=== PATIENT | male | born 1940 | race Caucasian/White ===

== ENCOUNTER 2017-05-24 09:35 | Inpatient (IN) | payer OTHER, BC ==
[2017-05-05 11:26] VITALS: BMI 29.0
--- NOTE | 2017-05-05 12:04 | PAT Medication Instructions ---
Service Date May 05, 2017. Current Home Medication List Acetaminophen (Tylenol), 1,000 MG PO DAILY PRN for Pain Alfuzosin Hcl (Uroxatral), 10 MG PO QPM Aspirin (Aspirin Ec), 81 MG PO HS Citalopram (Citalopram Hydrobromide), 1 TAB PO QAM Ezetimibe (Zetia), 10 MG PO QPM Levothyroxine Sodium (Synthroid), 1 TAB PO QD@0300 Losartan Potassium (Cozaar), 1 TAB PO QPM Metoprolol Tartrate (Lopressor) (Lopressor), 25 MG PO BID Multivitamins/Minerals (Mvi With Minerals), 1 TAB PO QAM Omeprazole Magnesium (Prilosec Otc), 20 MG PO QAM Oxycodone/Acetaminophen 10MG/325MG (Percocet 10MG/325MG), 1 TAB PO Q4 PRN for Pain Quetiapine Fumarate (Seroquel), 1 TAB PO HS Simvastatin (Zocor), 40 MG PO QPM Sitagliptin Phosphate (Januvia), 100 MG PO QAM Zolpidem Tartrate (Ambien), 5 MG PO HS Medication Instructions For Your Scheduled Surgery - Hold the following medications the night before surgery: Ezetimibe (Zetia), 10 MG PO QPM Losartan Potassium (Cozaar), 1 TAB PO QPM - Hold the following medications the morning of surgery: Sitagliptin Phosphate (Januvia), 100 MG PO QAM Multivitamins/Minerals (Mvi With Minerals), 1 TAB PO QAM - Take the following medications the morning of surgery with a sip of water: Citalopram (Citalopram Hydrobromide), 1 TAB PO QAM Omeprazole Magnesium (Prilosec Otc), 20 MG PO QAM Acetaminophen (Tylenol), 1,000 MG PO DAILY PRN for Pain (if needed, can be taken up to four hours before surgery) Oxycodone/Acetaminophen 10MG/325MG (Percocet 10MG/325MG), 1 TAB PO Q4 PRN for Pain (if needed, can be taken up to four hours before surgery) Levothyroxine Sodium (Synthroid), 1 TAB PO QD@0300 Metoprolol Tartrate (Lopressor) (Lopressor), 25 MG PO BID - Take the following medications as scheduled the night before surgery: Zolpidem Tartrate (Ambien), 5 MG PO HS Oxycodone/Acetaminophen 10MG/325MG (Percocet 10MG/325MG), 1 TAB PO Q4 PRN for Pain (if needed) Quetiapine Fumarate (Seroquel), 1 TAB PO HS Simvastatin (Zocor), 40 MG PO QPM Aspirin (Aspirin Ec), 81 MG PO HS Metoprolol Tartrate (Lopressor) (Lopressor), 25 MG PO BID Alfuzosin Hcl (Uroxatral), 10 MG PO QPM If you have any questions please call us at [phone] or [phone] or [phone]
[2017-05-05 12:55] LABS: BASO % 0.3 %; BASO ABS # 0.02 K/uL (0-0.2); EOS % 1.6 %; EOS ABS # 0.11 K/uL (0-0.5); HEMATOCRIT 39.7 % (42-52); HEMOGLOBIN 13.7 g/dL (14.0-18.0); IG# 0.02 K/uL (0.00-0.02); LYMPH % 19.9 %; LYMPH ABS # 1.36 K/uL (1.2-3.4); MEAN CELL VOLUME 89.8 fL (80-100); MEAN CORPUSCULAR HGB CONC 34.5 g/dl (32-36); MEAN PLATELET VOLUME 10.3 fL (7.4-10.4); MONO % 6.1 %; MONO ABS # 0.42 K/uL (0.11-0.59); NEUT % 71.8 %; PLATELET COUNT 135 K/uL (130-400); RED CELL DISTRIBUTION WIDTH CV 13.1 % (11.5-14.5); RED CELL DISTRIBUTION WIDTH SD 42.6 fL (36.4-46.3); WHITE BLOOD COUNT 6.83 K/uL (4.8-10.8)
--- NOTE | 2017-05-05 13:23 | DIAGNOSTIC IMAGING REPORT ---
CHEST 2 VIEWS ROUTINE HISTORY: 76 years-old Male PAT preoperative exam. No acute chest complaints. COMPARISON: Chest radiograph 05/22/2013 TECHNIQUE: PA and lateral views of the chest FINDINGS: Cardiomediastinal and hilar silhouettes are within normal limits. Prior median sternotomy with surgical clips projecting over the left mediastinum. The superior-most sternotomy wire is again noted to be fractured appears unchanged. Atherosclerosis of the aorta. There is no pneumothorax, pleural effusion, focal airspace consolidation or overt pulmonary edema. Mild right hemidiaphragmatic elevation. Bones of the chest appear grossly intact. Multilevel endplate spurring of the spine with degenerative changes of the shoulders. IMPRESSION: No acute process. The above report was generated using voice recognition software. It may contain grammatical, syntax or spelling errors. Electronically signed by: Epifanio Justice M.D. 05/05/2017 1:21 PM Dictated Date/Time: 05/05/2017 1:19 PM
[2017-05-05 14:25] LABS: CALCIUM 9.1 mg/dl (8.5-10.1); CREATININE 1.57 mg/dl (0.60-1.40); POTASSIUM 4.7 mmol/L (3.5-5.1)
[~2017-05-24] VITALS: Ht 182.9 cm; Wt 99.0 kg
[2017-05-24] VITALS (8 sets, daily range): BP systolic 132–155; BP diastolic 66–78; PULSE 60–80; TEMP 36.1–36.7; O2SAT 96–100; Ht 182.9 cm; Wt 99.0 kg
[~2017-05-24 09:35] MED LIST: ALFU1TAB2 PO; ASPI81TA28 PO; CITA40TA4 PO; CLINDAMYCIN 600 MG/54 ML D5W IV SCH; CLINDAMYCIN PHOS 150 MG/ML 2 ML VIAL IV SCH; EZET10TA63 PO; FINA5TAB4 PO; LACTATED RINGER'S 1000ML 1,000 ML IV SCH; LEVO75TA PO; LOSA1TAB PO; METO25TA56 PO; MULT-513 PO; OMEP20TA14 PO; OXYC-106 PO; SIMV80TA2 PO; SITA100T3 PO; SRQ200 PO; TYLOTC500 PO; ZOLP5TAB PO
[2017-05-24] MEDS ORDERED: FENTANYL CITRATE INJ 50 MCG/1 ML 2 ML VIAL ONE ×3 (09:40→12:01)
[2017-05-24] MEDS ORDERED: MIDAZOLAM HCL 1 MG/ML 2ML VIAL ONE (09:40)
--- NOTE | 2017-05-24 10:11 | History & Physical Bridge Note ---
H&P Re-Evaluation Bridge Note: I have examined the patient, reviewed the History & Physical and in the interval since the performance of the History & Physical I have noted the following changes of clinical significance: No changes noted
--- NOTE | 2017-05-24 10:12 | History and Physical ---
History & Physical Date May 24, 2017. Chief Complaint Back and leg pain History of Present Illness The patient is a 76 year old male with complaints of back and leg pain Additional History Hepatic Disease: No Endocrine Disorder: No Kidney Disease: No Hypertension: Yes Heart Disease: No Bleeding Tendencies: No Infectious Diseases: No Allergies Coded Allergies: Penicillins (Verified Allergy, Unknown, HIVES, 05/24/17) Home Medications Scheduled Alfuzosin Hcl (Alfuzosin Hcl Er), 1 TAB PO QAM Aspirin (Aspirin Ec), 81 MG PO HS Citalopram (Citalopram Hydrobromide), 1 TAB PO QAM Ezetimibe (Zetia), 10 MG PO QPM Finasteride (Proscar), 5 MG PO QPM Levothyroxine Sodium (Synthroid), 1 TAB PO QD@0300 Losartan Potassium (Cozaar), 1 TAB PO QPM Metoprolol Tartrate (Lopressor) (Lopressor), 25 MG PO BID Multivitamins/Minerals (Mvi With Minerals), 1 TAB PO QAM Omeprazole Magnesium (Prilosec Otc), 20 MG PO QAM Quetiapine Fumarate (Seroquel), 1 TAB PO HS Simvastatin (Zocor), 40 MG PO QPM Sitagliptin Phosphate (Januvia), 100 MG PO QAM Zolpidem Tartrate (Ambien), 5 MG PO HS Scheduled PRN Acetaminophen (Tylenol), 1,000 MG PO DAILY PRN for Pain Oxycodone/Acetaminophen 10MG/325MG (Percocet 10MG/325MG), 1 TAB PO Q4 PRN for Pain Physical Examination Skin: warm/dry, no rash Eyes: normal inspection, EOMI, sclerae normal ENT: normal ENT inspection, pharynx normal Head: normocephalic, atraumatic Neck: supple, no adenopathy, trachea midline Respiratory/Chest: lungs clear, normal breath sounds, no respiratory distress Cardiovascular: regular rate, rhythm, no edema, no murmur Abdomen / GI: normal bowel sounds, non tender Back: normal inspection Extremities: normal inspection, normal range of motion Neurologic/Psych: no motor/sensory deficits, alert, normal reflexes, oriented x 3 Diagnosis Lumbar spinal stenosis Plan of Treatment Lumbar decompression and fusion L5-S1
[2017-05-24] MEDS ORDERED: BACITRACIN 50000 UNIT VIAL ONE (10:27)
[2017-05-24] MEDS ORDERED: BUPIVACAINE/EPINEPHRINE 0.5% MPF 1:200,000 30 ML VIAL ONE (10:27)
[2017-05-24] MEDS ORDERED: HYDROmorphone INJ 2 MG/ML SYR/VIAL ONE ×2 (11:03→12:27)
[2017-05-24] MEDS ORDERED: EpHEDrine SULFATE INJ 50 MG/ML AMP IV PRN (11:30)
[2017-05-24] MEDS ORDERED: LABETALOL HCL IV 5 MG/ML 20ML IV PRN (11:30)
[2017-05-24] MEDS ORDERED: MEPERIDINE HCL 25 MG/ML CARP IV PRN (11:30)
[2017-05-24] MEDS ORDERED: ATROPINE SULFATE 0.1 MG/ML 5ML SYR IV PRN (11:30)
[2017-05-24] MEDS ORDERED: ONDANSETRON INJ 2 MG/ML 2 ML VIAL IV PRN ×2 (11:30→12:45)
[2017-05-24] MEDS ORDERED: FLOSEAL HEMOSTATIC MATRIX 10ML TOP ONE (12:22)
--- NOTE | 2017-05-24 12:27 | DIAGNOSTIC IMAGING REPORT ---
INTRAOPERATIVE RADIOGRAPHS CLINICAL HISTORY: L5-S1 spinal fusion. Fluoroscopy time: 24 seconds. FINDINGS: 2 spot fluoroscopic views of the lumbar spine are presented. There has been discectomy at L5-S1 with laminectomy and posterior fusion at this level. Interpedicular screws are present at both levels. The orthopedic hardware appears intact. IMPRESSION: Intraoperative images from L5 -S1 spinal fusion as above. Electronically signed by: Kapil Dimas M.D. 05/24/2017 12:26 PM Dictated Date/Time: 05/24/2017 12:25 PM
--- NOTE | 2017-05-24 12:36 | [facility] Operative Report ---
Operative Report Operative Date May 24, 2017. Pre-Operative Diagnosis Lumbar Spinal Stenosis Post-Operative Diagnosis Lumbar Spinal Stenosis Procedure(s) Performed #1 revision decompression medial facetectomy foraminotomy L5-S1. #2 posterior spinal fusion L5-S1. #3 placement posterior's instrumentation L5-S1. #4 interbody fusion L5-S1. #5 history peek cage 11 x 22 mm L5-S1. #6 placement of locally harvested morcellized autograft in the posterior lateral gutters. #7 placement of infuse collagen sponge and Master graft in the posterior lateral gutters and osteopenia been interbody space. Surgeon Dr. Yates [employer] Surgeon(s) none Estimated Blood Loss 200 cc Findings Severe spinal stenosis Specimens none per surgeon Description of Procedure Patient was met with him preoperatively case discussed all questions addressed. After informed consent obtained patient was taken to the operative suite and underwent intubation and placed in prone position on the Carter table on top of the Edgardo frame. All bony prominences were well-padded eyes inspected to ensure there was no external pressure placed upon them. This point the lumbar spine was prepped and draped in the normal sterile fashion. Sharp dissection with the assistance of Bovie cautery was performed down to and exposing the lamina and transverse processes of L5 and circumareolar bilaterally. Dez of the fashion revision complete laminectomy of L5 was performed including medial facetectomy foraminotomy on the left trigger severe lateral recess and foraminal stenosis. Pedicle screws were then placed in L5 and S1 bilaterally with assistance of fluoroscopy. The appropriately sized destiny was placed. A trans-foraminal approach on the left the discectomy of L5-S1 was performed endplates curetted to subcortical bleeding bone and a 12 x 22 mm peek cage filled with posterior bone graft Position. The rods were locked in the final position.. The transverse processes of L5 and the sacral alar bur to subcortical bleeding bone. Infuse collagen sponge mesh graft locally harvested was Was placed in the posterolateral gutters. 15 round STEPHANIE drain inserted. Incision then closed with 1 Vicryl in the fascia 2-0 Vicryl subcutaneous change the 4-0 Monocryl for frozen closure Steri-Strips sterile dressing was placed. Patient with continued adhesive condition. I attest to the content of the Intraoperative Record and any orders documented therein. Any exceptions are noted below.
[2017-05-24] MEDS ORDERED: MAGNESIUM HYDROXIDE SUSP 30 ML UDC PO PRN (12:45)
[2017-05-24] MEDS ORDERED: ALUMINUM/MAGNESIUM SUSP 30 ML UDC PO PRN (12:45)
[2017-05-24] MEDS ORDERED: ACETAMINOPHEN 500 MG TAB PO PRN (12:45)
[2017-05-24] MEDS ORDERED: SOD PHOSPHATE/SOD BIPHOSPHATE ENEMA 132 ML BTL PR PRN (12:45)
[2017-05-24] MEDS ORDERED: LORAZEPAM INJ 0.5 MG in SYRINGE 0.75 ML IV PRN (12:45)
[2017-05-24] MEDS ORDERED: PROMETHAZINE HCL INJ 12.5 MG in SODIUM CHLORIDE 0.9% 50ML 50 ML IV PRN (12:45)
[2017-05-24] MEDS ORDERED: DO NOT ADMINISTER FLU VACCINE PRN (12:45)
[2017-05-24] MEDS ORDERED: METOCLOPRAMIDE HCL INJ 5 MG/ML 2 ML VIAL IV PRN (12:45)
[2017-05-24] MEDS ORDERED: FAMOTIDINE 20 MG TAB PO PRN (12:45)
[2017-05-24] MEDS ORDERED: hydrOXYzine HCL 25 MG TAB PO PRN (12:45)
[2017-05-24] MEDS ORDERED: NALOXONE HCL 0.4 MG/1 ML VIAL/CARP IV PRN ×2 (12:45)
[2017-05-24] MEDS ORDERED: HYDROmorphone INJ 0.5 MG/0.5 ML SYR IV PRN (12:45)
[2017-05-24] MEDS ORDERED: ACETAMINOPHEN IV 100 ML IV PRN (12:45)
[2017-05-24] MEDS ORDERED: BISACODYL 10 MG SUPP PR PRN (12:45)
[2017-05-24] MEDS ORDERED: HYDROmorphone HCL 0.5MG/ML 50 ML CASSETTE ONE (12:45)
[2017-05-24] MEDS ORDERED: DO NOT ADMINISTER PNEUMOCOCCAL VACCINE PRN (12:45)
[2017-05-24] MEDS ORDERED: LORAZEPAM 0.5 MG TAB PO PRN (12:45)
[2017-05-24] MEDS ORDERED: PHENYLEPHRINE 100MCG/ML 5ML SYR ONE (12:52)
[2017-05-24] MEDS ORDERED: GLYCOPYRROLATE INJ 0.2 MG/ML VIAL ONE (12:52)
[2017-05-24] MEDS ORDERED: NEOSTIGMINE METHYLSULFATE 1 MG/ML 10ML VIAL ONE (12:52)
[2017-05-24] MEDS ORDERED: LIDOCAINE HCL 2% 2 ML VIAL (20MG/ML) ONE (12:52)
[2017-05-24] MEDS ORDERED: DEXAMETHASONE SOD INJ 4 MG/ML VIAL ONE (12:52)
[2017-05-24] MEDS ORDERED: PROPOFOL IV EMULSION 10 MG/ML 20 ML VIAL IV ONE (12:52)
[2017-05-24] MEDS ORDERED: EpHEDrine SULFATE 50MG/5ML SYR ONE (12:52)
[2017-05-24] MEDS ORDERED: ONDANSETRON INJ 2 MG/ML 2 ML VIAL ONE (12:52)
[2017-05-24] MEDS: FENTANYL CITRATE INJ 50 MCG/1 ML 2 ML VIAL IV PRN ×2 (13:04→13:17)
[2017-05-24] MEDS ORDERED: NURSING VERBAL MED ORDER ONE ×2 (13:05→22:15)
[2017-05-24] MEDS ORDERED: METOCLOPRAMIDE HCL INJ 5 MG/ML 2 ML VIAL ONE (13:07)
[2017-05-24] MEDS: HYDROmorphone INJ 1 MG/ML SYR IV PRN ×2 (13:25→13:38)
--- NOTE | 2017-05-24 13:51 | Anesthesiology Progress Note ---
Anesthesia Post Op Note Date & Time May 24, 2017 at 13:51 Vital Signs Vital Signs Past 12 Hours Date Time Temp Pulse Resp B/P (MAP) Pulse Ox O2 Delivery O2 Flow Rate FiO2 05/24/17 13:40 60 17 127/59 100 Nasal Cannula 4 05/24/17 13:30 55 12 131/57 100 Nasal Cannula 4 05/24/17 13:20 55 12 127/54 100 Nasal Cannula 4 05/24/17 13:10 58 16 143/58 100 Nasal Cannula 4 05/24/17 13:00 59 17 142/59 98 Oxymask 10 05/24/17 12:50 58 20 155/55 100 Oxymask 10 05/24/17 12:40 37.1 61 16 165/71 100 Oxymask 10 05/24/17 09:55 36.3 66 20 155/78 98 Room Air Notes Mental Status: alert / awake / arousable, participated in evaluation Pt Amnestic to Procedure: Yes Nausea / Vomiting: adequately controlled Pain: adequately controlled Airway Patency, RR, SpO2: stable & adequate BP & HR: stable & adequate Hydration State: stable & adequate Anesthetic Complications: no major complications apparent
[2017-05-24] MEDS ORDERED: HYDROmorphone INJ 1 MG/ML SYR IV PRN (14:00)
[2017-05-24] MEDS: HYDROmorphone HCL 0.5MG/ML 50 ML CASSETTE IV PRN ×3 (14:05→22:24)
[2017-05-24] MEDS: SODIUM CHLORIDE 0.9% 1000ML 1,000 ML IV SCH ×2 (14:32→17:41)
[2017-05-24] MEDS: CLINDAMYCIN IV 600 MG in DEXTROSE 5% 50ML 50 ML IV SCH (17:41)
[2017-05-24] MEDS: METOPROLOL TARTRATE 25 MG TAB PO SCH (21:11)
[2017-05-24] MEDS: ZOLPIDEM TARTRATE 5 MG TAB PO SCH (21:11)
[2017-05-24] MEDS: QUETIAPINE FUMARATE 200 MG TAB PO SCH (21:11)
[2017-05-24] MEDS: DOCUSATE SODIUM/SENNA 50/8.6MG TAB PO SCH (21:12)
[2017-05-24] MEDS: EZETIMIBE 10MG TAB PO SCH (21:12)
[2017-05-24] MEDS: SIMVASTATIN 80 MG TAB PO SCH (21:12)
[2017-05-24] MEDS: ASPIRIN 81 MG ECTAB PO SCH (21:13)
[2017-05-24] MEDS: FINASTERIDE 5 MG TAB PO SCH (21:13)
[2017-05-24] MEDS: LOSARTAN POTASSIUM 25 MG TAB PO SCH (21:13)
[2017-05-25] MEDS: SODIUM CHLORIDE 0.9% 1000ML 1,000 ML IV SCH ×4 (00:55→14:19)
[2017-05-25] MEDS: CLINDAMYCIN IV 600 MG in DEXTROSE 5% 50ML 50 ML IV SCH (00:56)
[2017-05-25 03:01] VITALS: BP 137/73; PULSE 83; TEMP 36.7; O2SAT 95
[2017-05-25] MEDS: LEVOTHYROXINE 75 MCG TAB PO SCH (03:01)
[2017-05-25] MEDS ORDERED: NURSING VERBAL MED ORDER ONE ×3 (05:45→17:15)
[2017-05-25] MEDS: HYDROmorphone HCL 0.5MG/ML 50 ML CASSETTE IV PRN (06:55)
[2017-05-25 06:59] LABS: HEMATOCRIT 30.4 % (42-52); HEMOGLOBIN 10.7 g/dL (14.0-18.0); IG# 0.03 K/uL (0.00-0.02); LYMPH % 6.4 %; LYMPH ABS # 0.58 K/uL (1.2-3.4); MEAN CELL VOLUME 88.6 fL (80-100); MEAN CORPUSCULAR HEMOGLOBIN 31.2 pg (25-34); MEAN CORPUSCULAR HGB CONC 35.2 g/dl (32-36); MEAN PLATELET VOLUME 9.9 fL (7.4-10.4); MONO ABS # 0.45 K/uL (0.11-0.59); NEUT % 88.3 %; NEUT ABS # 7.94 K/uL (1.4-6.5); PLATELET COUNT 112 K/uL (130-400); RED CELL DISTRIBUTION WIDTH SD 42.3 fL (36.4-46.3)
[2017-05-25] MEDS: ALFUZosin TAB 10 MG TAB PO SCH (07:13)
[2017-05-25] MEDS: PANTOprazole SOD 40 MG TAB PO SCH (07:13)
[2017-05-25] MEDS: CITALOPRAM 40 MG TAB PO SCH (07:13)
[2017-05-25] MEDS: SITAGLIPTIN 100 MG TAB PO SCH (07:13)
[2017-05-25] MEDS: METOPROLOL TARTRATE 25 MG TAB PO SCH ×2 (07:14→21:28)
[2017-05-25 07:28] LABS: CALCIUM 8.3 mg/dl (8.5-10.1); CREATININE 1.56 mg/dl (0.60-1.40); POTASSIUM 4.4 mmol/L (3.5-5.1)
[2017-05-25 07:35] VITALS: BP 150/68; PULSE 73; TEMP 36.6; O2SAT 96
--- NOTE | 2017-05-25 08:28 | Clinical Documentation Query ---
AUDI Morales : CLINICAL DOCUMENTATION QUERIES QUERY 1 OF 3 Patient is a 76 year old male who underwent posterior lumbosacral decompression and fusion. EBL for the procedure was 200 ml's with subsequent losses totaling 660 ml's to date. Preoperative H&H was 13.7 g/dl adn 39.7%. POD #1, repeat values were 10.7 g/dl and 30.4%. He is being monitored with serial hematology and I/O including drain outputs. In your clinical opinion is this patient being managed for: ( ) Acute blood loss anemia ( ) Not Agree ( ) Other explanation of clinical findings (Please Explain) ( ) Unable to determine (Please Define) ( ) Need to Discuss The medical record reflects the following clinical findings, treatment, and risk factors. Clinical Indicators: As above Treatment:He is being monitored with serial hematology and I/O. Risk Factors: Acute perioperative blood losses QUERY 2 OF 3 Pre admission BUN, creatinine, and estimated GFR of 28 mg/dl, 1.57 mg/dl and 42 ml/min. Information not captured as either CKD or JOSH. Consider documentation as suggested below as appropriate. Thank you. In your clinical opinion is this patient being managed for: ( ) Chronic kidney disease, stage 3 ( ) Not Agree ( ) Other explanation of clinical findings (Please Explain) ( ) Unable to determine (Please Define) ( ) Need to Discuss The medical record reflects the following clinical findings, treatment, and risk factors. Clinical Indicators: Treatment: Risk Factors: QUERY 3 OF 3 H&P notes history only of hypertension. However, home medication list and historical EMR suggestive of the following. Alfuzosin Hcl (Alfuzosin Hcl Er), 1 TAB PO QAM Aspirin (Aspirin Ec), 81 MG PO HS Citalopram (Citalopram Hydrobromide), 1 TAB PO QAM Ezetimibe (Zetia), 10 MG PO QPM Finasteride (Proscar), 5 MG PO QPM Levothyroxine Sodium (Synthroid), 1 TAB PO QD@0300 Losartan Potassium (Cozaar), 1 TAB PO QPM Metoprolol Tartrate (Lopressor) (Lopressor), 25 MG PO BID Multivitamins/Minerals (Mvi With Minerals), 1 TAB PO QAM Omeprazole Magnesium (Prilosec Otc), 20 MG PO QAM Quetiapine Fumarate (Seroquel), 1 TAB PO HS Simvastatin (Zocor), 40 MG PO QPM Sitagliptin Phosphate (Januvia), 100 MG PO QAM Zolpidem Tartrate (Ambien), 5 MG PO HS In your clinical opinion is this patient being managed for: ( ) Pure hypercholesterolemia, DM type II, CAD ( ) Not Agree ( ) Other explanation of clinical findings (Please Explain) ( ) Unable to determine (Please Define) ( ) Need to Discuss The medical record reflects the following clinical findings, treatment, and risk factors. Clinical Indicators: As above Treatment: As above Risk Factors: Age, genetics, dietary/exercise practices Please clarify and document your clinical opinion in the progress notes and discharge summary. Terms such as "probable", "suspected", "likely", "questionable", "possible", or "still to be ruled out" are acceptable. IF IN AGREEMENT, YOU MUST DOCUMENT ABOVE DIAGNOSTIC STATEMENT IN DAILY PROGRESS NOTES AND DISCHARGE SUMMARY. This document is not part of the patient's record. Thank You, David Thapa, RN [phone]
[2017-05-25] MEDS ORDERED: RXC5 PO (10:52)
--- NOTE | 2017-05-25 10:53 | Discharge Instructions ---
Discharge Instructions Date of Service May 25, 2017. Admission Reason for Admission: Lumbar Spinal Stenosis Discharge Discharge Diagnosis / Problem: lumbar stenosis Discharge Goals Goal(s): Improve function Activity Recommendations Activity Limitations: per Instructions/Follow-up section . Instructions / Follow-Up Instructions / Follow-Up ACTIVITY RECOMMENDATIONS: SELF CARE INSTRUCTIONS AFTER THORACIC/LUMBAR FUSIONS 1. You may walk to your tolerance. It is good exercise for your legs and back. Expect some back and intermittent leg aches and pains. 2. You may perform "counter-top" level activities (make a sandwich, gildardo with a project, etc.). 3. No bending or lifting of more than 10 pounds or back twisting of any nature (roll like a log when turning in bed). 4. You may ride in a car for 20-30 minutes at a time. No driving until after your first visit with your doctor. 5. Frequent changes of position and restricting sitting to 30 minutes at a time will help limit the amount of back spasms and stiffness you may experience. 6. You may discontinue the use of ambulatory aids (cane, crutches, etc.) once your strength and confidence allow. 7. You may case finishing machine adjuster the shower and let water strike your incision when you arrive home at least once daily. Do not take a tub bath, sit in a hot tub or go into a swimming pool until after your first recheck in the office. SPECIAL CARE INSTRUCTIONS: VERY IMPORTANT TO READ AND REVIEW A. Your surgical incision has been closed with a cosmetic suture under the skin that will dissolve in about 6 weeks. In 14 days, you can use a pair of clean scissors and cut the suture that is left outside of the skin at the ends of your incision. 1. The small skin tapes can be removed 7 days after surgery if they have not fallen off by that point. 2. You may keep the wound open to air as much as possible to promote healing after post-op day number 5 unless told otherwise by your doctor. 3. If you think the wound looks like it is becoming infected (redness or worsening drainage) and/or you are experiencing fever, chill or worsening back pain and muscle spasms, contact the office so that we may evaluate you as soon as possible. B. Complications are uncommon, but please contact us if you have any signs or symptoms of: 1. wound infection (fever higher than 102.5 degrees F, redness, separation of wound, drainage, or increasing pain from the incision) 2. blood clots in legs (pain, swelling, redness and warmth in legs) 3. urinary tract infection (fever higher than 102.5 degrees F, burning upon urination or increased frequency of urination) 4. nerve problems (inability to walk on your toes or heels, numbness, loss of bowel or bladder control) 5. any other symptoms that concern you C. Please call the office at if you have any concerns or questions about your operation or recovery. D. No smoking! Smoking drastically decreases the chance of a solid fusion. E. Do not take any anti-inflammatory medications (Indocin, Advil, Motrin, Aspirin, Naprosyn, etc.) as these may inhibit the chance of a solid fusion. Tylenol is okay to take for pain. MANAGING PAIN AFTER SPINAL SURGERY 1. Narcotic medication is intended for short-term use and will be provided for surgical pain. Surgical pain usually lasts for a period of 4-6 weeks. Narcotic medication includes Percocet, Vicodin, Darvocet, Tylenol #3 or Lortab. 2. Longer-term pain is more appropriately treated with non-narcotic medication such as Tylenol ES. 3. Muscle spasm is not appropriately treated with narcotics. Muscle relaxers such as Soma, Flexeril or Skelaxin can be used along with Tylenol ES. 4. Remember that we all live with some "aches and pains". This is not unusual or uncommon after an injury or as we get older. a. Back pain is expected and may include muscle spasms for 4 to 6 weeks after surgery. The pain should gradually improve. If the pain worsens for no apparent reason, please contact the office. b. Intermittent leg pain may also be experienced and should not be concerned about unless it worsens for no apparent reason. If so, please contact the office. 5. We will provide appropriate medication within the normal guidelines of their prescribed use. We will also be very cautious and aware of potential abuse and extended duration of patients' medication needs. a. Pain medications are for your comfort and to assist with sleep and rest so that the tissue can heal. They are not provided in order to return to normal activity and should not be used through the day. To do so or worsening pain at night can result from ongoing tissue damage and development of tolerance to the prescribed medicine. 6. Please allow 2-3 days to process refills. Prescriptions will not be mailed but must be picked up at the office. FOLLOW UP VISIT: Keep your scheduled follow-up appointment. Any questions, please call the office at . Current Hospital Diet Patient's current hospital diet: Diabetes Type 2 Diet Discharge Diet Recommended Diet: Regular Diet Procedures Procedures Performed: #1 revision decompression medial facetectomy foraminotomy L5-S1. #2 posterior spinal fusion L5-S1. #3 placement posterior's instrumentation L5-S1. #4 interbody fusion L5-S1. #5 history peek cage 11 x 22 mm L5-S1. #6 placement of locally harvested morcellized autograft in the posterior lateral gutters. #7 placement of infuse collagen sponge and Master graft in the posterior lateral gutters and osteopenia been interbody space. Pending Studies Studies pending at discharge: no Medical Emergencies . Who to Call and When: Medical Emergencies: If at any time you feel your situation is an emergency, please call 911 immediately. . Non-Emergent Contact Non-Emergency issues call your: Primary Care Provider . "Provider Documentation" section prepared by John Yates. . VTE Core Measure Inpt VTE Proph given/why not?: Tommie Ramirez, SCD's
[2017-05-25] MEDS ORDERED: KETOROLAC TROMETHAMINE 15 MG/ML VIAL IV. PRN (11:00)
[2017-05-25 11:05] VITALS: BP 160/65; PULSE 70; TEMP 36.7; O2SAT 95
--- NOTE | 2017-05-25 13:10 | Anesthesiology Progress Note ---
Anesthesia Post Op Note Date & Time May 25, 2017 at 13:08 Vital Signs Pain Intensity: 4.0 Vital Signs Past 12 Hours Date Time Temp Pulse Resp B/P (MAP) Pulse Ox O2 Delivery O2 Flow Rate FiO2 05/25/17 11:05 36.7 70 16 160/65 (96) 95 Room Air 05/25/17 07:35 36.6 73 16 150/68 (95) 96 Room Air 05/25/17 07:15 Room Air 05/25/17 03:01 36.7 83 18 137/73 (94) 95 Room Air Notes Mental Status: alert / awake / arousable, participated in evaluation Pt Amnestic to Procedure: Yes Nausea / Vomiting: adequately controlled Pain: adequately controlled Airway Patency, RR, SpO2: stable & adequate BP & HR: stable & adequate Hydration State: stable & adequate Awake, alert, up in chair, medication managing pain. Pain scale 4. No complaints with anesthesia care.
--- NOTE | 2017-05-25 13:28 | Progress Note ---
Progress Note Date of Service May 25, 2017. Progress Note Patient's back pain is controlled. His left leg symptoms are markedly improved. On exam he is in a chair at the bedside. Vital signs are stable. His strength is excellent. Assessment status post revision decompression fusion. This time will continue physical therapy advances bowel regimen and anticipate home Tuesday.
[2017-05-25 15:19] VITALS: BP 127/64; PULSE 66; TEMP 36.7; O2SAT 95
[2017-05-25] MEDS: OXYCODONE HCL IR 5 MG TAB (IMMEDIATE RELEASE) PO PRN ×2 (19:34→23:48)
[2017-05-25 21:23] VITALS: BP 120/69; PULSE 66
[2017-05-25] MEDS: SIMVASTATIN 80 MG TAB PO SCH (21:27)
[2017-05-25] MEDS: FINASTERIDE 5 MG TAB PO SCH (21:27)
[2017-05-25] MEDS: ZOLPIDEM TARTRATE 5 MG TAB PO SCH (21:27)
[2017-05-25] MEDS: DOCUSATE SODIUM/SENNA 50/8.6MG TAB PO SCH (21:28)
[2017-05-25] MEDS: ASPIRIN 81 MG ECTAB PO SCH (21:28)
[2017-05-25] MEDS: LOSARTAN POTASSIUM 25 MG TAB PO SCH (21:28)
[2017-05-25] MEDS: QUETIAPINE FUMARATE 200 MG TAB PO SCH (21:28)
[2017-05-25] MEDS: EZETIMIBE 10MG TAB PO SCH (21:28)
[2017-05-25 23:06] VITALS: BP 112/62; PULSE 67; TEMP 36.7; O2SAT 95
[2017-05-26] MEDS: LEVOTHYROXINE 75 MCG TAB PO SCH (02:33)
[2017-05-26] MEDS: OXYCODONE HCL IR 5 MG TAB (IMMEDIATE RELEASE) PO PRN ×4 (05:21→23:14)
[2017-05-26] MEDS: POLYETHYLENE (MIRALAX) 17 GM PACK PO SCH ×4 (05:22→23:14)
[2017-05-26 07:20] VITALS: BP 99/60; PULSE 68; TEMP 36.9; O2SAT 94
[2017-05-26] MEDS: METOPROLOL TARTRATE 25 MG TAB PO SCH ×2 (09:00→21:07)
[2017-05-26 09:01] VITALS: BP 97/62; PULSE 66
[2017-05-26] MEDS: ALFUZosin TAB 10 MG TAB PO SCH (09:02)
[2017-05-26] MEDS: PANTOprazole SOD 40 MG TAB PO SCH (09:02)
[2017-05-26] MEDS: CITALOPRAM 40 MG TAB PO SCH (09:02)
[2017-05-26] MEDS: SITAGLIPTIN 100 MG TAB PO SCH (09:02)
--- NOTE | 2017-05-26 12:10 | Progress Note ---
Progress Note Date of Service May 26, 2017. Progress Note Patient states back pain is improving. Leg pain is gone. He is impeding well. Vital signs are stable. Exam is good strength testing appears [place]. Assessment status post lumbar decompression fusion replant this time anticipate discharge home tomorrow.
[2017-05-26 15:20] VITALS: BP 108/65; PULSE 59; TEMP 36.6; O2SAT 94
[2017-05-26 21:04] VITALS: BP 148/72; PULSE 67
[2017-05-26] MEDS: DOCUSATE SODIUM/SENNA 50/8.6MG TAB PO SCH (21:07)
[2017-05-26] MEDS: QUETIAPINE FUMARATE 200 MG TAB PO SCH (21:07)
[2017-05-26] MEDS: EZETIMIBE 10MG TAB PO SCH (21:07)
[2017-05-26] MEDS: FINASTERIDE 5 MG TAB PO SCH (21:07)
[2017-05-26] MEDS: ASPIRIN 81 MG ECTAB PO SCH (21:08)
[2017-05-26] MEDS: LOSARTAN POTASSIUM 25 MG TAB PO SCH (21:08)
[2017-05-26] MEDS: SIMVASTATIN 80 MG TAB PO SCH (21:09)
[2017-05-26] MEDS: ZOLPIDEM TARTRATE 5 MG TAB PO SCH (21:11)
[2017-05-26 22:58] VITALS: BP 136/73; PULSE 73; TEMP 36.9; O2SAT 94
[2017-05-27] MEDS: LEVOTHYROXINE 75 MCG TAB PO SCH (02:57)
[2017-05-27] MEDS: POLYETHYLENE (MIRALAX) 17 GM PACK PO SCH ×2 (05:40→12:00)
[2017-05-27 07:35] VITALS: BP 97/58; PULSE 83; TEMP 37; O2SAT 94
[2017-05-27] MEDS: CITALOPRAM 40 MG TAB PO SCH (07:36)
[2017-05-27] MEDS: PANTOprazole SOD 40 MG TAB PO SCH (07:36)
[2017-05-27] MEDS: OXYCODONE HCL IR 5 MG TAB (IMMEDIATE RELEASE) PO PRN ×2 (07:36→15:14)
[2017-05-27] MEDS: ALFUZosin TAB 10 MG TAB PO SCH (07:37)
[2017-05-27] MEDS: SITAGLIPTIN 100 MG TAB PO SCH (07:37)
[2017-05-27] MEDS: METOPROLOL TARTRATE 25 MG TAB PO SCH (09:00)
--- NOTE | 2017-05-27 13:35 | Discharge Summary ---
Orthopedic Discharge Summary Admission Date/Reason May 24, 2017 at 10:30 Lumbar Spinal Stenosis. Discharge Date/Disposition May 27, 2017 Home Diagnosis Principal Diagnosis: Lumbar spinal stenosis Admission Physical Exam As per Admitting History & Physical. Hospital Course Patient underwent a lumbar decompression fusion tolerated this well as taken to the orthopedic floor postoperatively. Postop day #1 he was up and ambulatory progress through postop day #2 and sexually discharged home on postop day #3. Discharge orders and instructions can be found on the chart for further review. Discharge Instructions Please refer to the electronic Patient Visit Report (Discharge Instructions) for additional information.
[2017-05-27 14:28] VITALS: BP 97/58; PULSE 83; TEMP 37; O2SAT 94
== END 2017-05-27 15:39 | disposition home or self-care (01) | DRG 455 ==
LOC: C.ACU 09:35 → C.3E 10:30 → ENRESERV 13:49
PROVIDERS: ADMIT Orthopaedic Surgery Orthopaedic Surgery of the Spine; ATTEND Orthopaedic Surgery Orthopaedic Surgery of the Spine
PROC: 0ST40ZZ Resection of Lumbosacral Disc, Open Approach (ICD-10-PCS; principal; 2017-05-24 11:15)
PROC: 0SG30AJ Fusion of Lumbosacral Joint with Interbody Fusion Device, Posterior Approach, Anterior Column, Open Approach (ICD-10-PCS; principal; 2017-05-24 11:15)
PROC: 0SG3071 Fusion of Lumbosacral Joint with Autologous Tissue Substitute, Posterior Approach, Posterior Column, Open Approach (ICD-10-PCS; principal; 2017-05-24 11:15)
DX: M48.061 Spinal stenosis, lumbar region without neurogenic claudication (principal); I12.9 Hypertensive chronic kidney disease with stage 1 through stage 4 chronic kidney disease, or unspecified chronic kidney disease; I25.10 Atherosclerotic heart disease of native coronary artery without angina pectoris; E78.5 Hyperlipidemia, unspecified; E11.22 Type 2 diabetes mellitus with diabetic chronic kidney disease; E11.42 Type 2 diabetes mellitus with diabetic polyneuropathy; N18.9 Chronic kidney disease, unspecified; N40.0 Benign prostatic hyperplasia without lower urinary tract symptoms; E03.9 Hypothyroidism, unspecified; K21.9 Gastro-esophageal reflux disease without esophagitis; F31.9 Bipolar disorder, unspecified; Z79.82 Long term (current) use of aspirin; Z79.899 Other long term (current) drug therapy; Z88.0 Allergy status to penicillin; Z95.1 Presence of aortocoronary bypass graft; Z87.442 Personal history of urinary calculi